=== PATIENT | female | born 1975 | race Caucasian/White ===

== ENCOUNTER 2016-12-26 13:53 | Outpatient (CLI) | payer MEDICAID, OTHER ==
[2016-12-26 14:18] LABS: #Basophils 0.1 thou/uL (0.0-0.2); #Eosinphils 0.1 thou/uL (0.0-0.7); #Monocytes 0.6 thou/uL (0.11-0.59); #Neutrophils 4.3 thou/uL (1.40-6.50); %Basophils 1.5 % (0.0-1.0); %Lymphocytes 28.4 % (21.0-51.0); %Monocytes 8.2 % (0.0-10.0); Hemoglobin 16.7 g/dL (12.0-16.0); Mean Corpuscular HGB CONC 34.1 g/dL (32.0-36.0); Mean Corpuscular Hemoglobin 31.4 pg (27.0-31.0); Mean Corpuscular Volume 92.3 fl (81.0-99.0); Mean Platelet Volume 7.4 fL (7.4-10.4); Platelet Count 246 thou/uL (130-400); RBC Distribution Width 11.9 % (11.5-14.5); Red Blood Cell (RBC) Count 5.31 mill/uL (4.20-5.40); White Blood Cell (WBC) Count 7.2 thou/uL (4.8-10.8)
[2016-12-26 14:20] LABS: ALT (SGPT) 19 U/L (8-55); AST (SGOT) 14 U/L (5-34); Albumin 4.4 g/dL (3.5-5.0); Alkaline Phosphatase 84 U/L (40-150); Anion Gap 15 mmol/L (10-20); BUN (Urea Nitrogen) 14 mg/dL (7.0-18.7); Bilirubin, Total 0.5 mg/dL (0.2-1.2); Calc. Creatinine Clearance 0 mL/min (70-130); Calcium 9.7 mg/dL (7.8-10.44); Carbon Dioxide 25 mmol/L (22-29); Cardiac Risk 4.7 (Less than 4.5); Chloride 105 mmol/L (98-107); Cholesterol 225 mg/dl (< 200 Desired); Estimated GFR-MDRD 83; Globulin 2.6 g/dL (2.4-3.5); Glucose 99 mg/dL (70-105); HDL Cholesterol 48 mg/dL (>60 Neg Risk); LDL Cholesterol, Calculated 162 mg/dL; Potassium 4.1 mmol/L (3.5-5.1); Sodium 141 mmol/L (136-145); Triglycerides 74 mg/dL (Less than 150)
== END 2016-12-26 13:54 | disposition home or self-care (01) ==
LOC: HPCALD 13:53
PROVIDERS: ATTEND Family Medicine
DX: Z13.6 Encounter for screening for cardiovascular disorders (principal); I10 Essential (primary) hypertension; L29.8 Other pruritus; N89.8 Other specified noninflammatory disorders of vagina
CPT/HCPCS: 36415; 80053; 80061; 84443; 85025; 87480; 87491; 87510; 87591; 87660

== ENCOUNTER 2020-02-08 14:35 | Emergency (ER) | payer MEDICAID, SELFPAY ==
[2020-02-08] MEDS ORDERED: Morphine 2 MG/ML SYRINGE ONE (14:52)
[2020-02-08] MEDS ORDERED: Mag-Al Plus 1200 MG/1200 MG/120 MG/30 ML UDCUP ONE (14:52)
[2020-02-08] MEDS ORDERED: Morphine 4 MG/ML VIAL ONE (14:52)
[2020-02-08] MEDS ORDERED: Lidocaine Viscous Sol 2% 15 ml UD Cup ONE (14:52)
[2020-02-08 15:04] LABS: #Basophils 0.2 thou/uL (0.0-0.2); #Eosinphils 0.1 thou/uL (0.0-0.7); #Lymphocytes 2.7 thou/uL (1.20-3.40); #Monocytes 0.8 thou/uL (0.11-0.59); #Neutrophils 7.6 thou/uL (1.40-6.50); %Basophils 1.4 % (0.0-1.0); %Lymphocytes 23.6 % (21.0-51.0); %Monocytes 7.2 % (0.0-10.0); %Neutrophils 66.8 % (42.0-75.0); Hemoglobin 16.6 g/dL (12.0-16.0); Mean Corpuscular HGB CONC 32.4 g/dL (32.0-36.0); Mean Corpuscular Hemoglobin 31.9 pg (27.0-31.0); Mean Corpuscular Volume 98.2 fL (78.0-98.0); Mean Platelet Volume 7.1 fL (7.4-10.4); Platelet Count 309 thou/uL (130-400); RBC Distribution Width 11.5 % (11.5-14.5); Red Blood Cell (RBC) Count 5.23 mill/uL (4.20-5.40); White Blood Cell (WBC) Count 11.3 thou/uL (4.8-10.8)
[2020-02-08 15:17] LABS: BHCG - Serum Negative (NEGATIVE); Pregs Control Background? CLEAR/WHITE (CLR/WHITE); Pregs Control Bar Appear? YES (CONTROL BAR)
[2020-02-08 15:19] LABS: ALT (SGPT) 101 U/L (8-55); AST (SGOT) 165 U/L (5-34); Albumin 4.6 g/dL (3.5-5.0); Alkaline Phosphatase 140 U/L (40-110); Anion Gap 18 mmol/L (10-20); BUN (Urea Nitrogen) 20 mg/dL (7.0-18.7); Bilirubin, Total 0.8 mg/dL (0.2-1.2); Calc. Creatinine Clearance 0 mL/min (70-130); Calcium 10.3 mg/dL (7.8-10.44); Carbon Dioxide 25 mmol/L (22-29); Chloride 100 mmol/L (98-107); Estimated GFR-MDRD 77; Glucose 153 mg/dL (70-105); Lipase 97 U/L (8-78); Potassium 3.1 mmol/L (3.5-5.1); Protein, Total 7.6 g/dL (6.0-8.3); Sodium 140 mmol/L (136-145)
[2020-02-08] MEDS ORDERED: Potassium Chloride 20 MEQ TAB ONE (15:49)
== END 2020-02-08 16:00 | disposition short-term general hospital (02) ==
LOC: BURERS 14:35
DX: K80.20 Calculus of gallbladder without cholecystitis without obstruction (principal); I10 Essential (primary) hypertension; F17.210 Nicotine dependence, cigarettes, uncomplicated; Z79.899 Other long term (current) drug therapy
CPT/HCPCS: 36415; 80053; 83690; 84484; 84703; 85025; 93005; 96374; J2270

== ENCOUNTER 2020-08-07 23:39 | Emergency (ER) | payer BC ==
[2020-08-07] MEDS ORDERED: Lidocaine 2% w/Epinephrine 1:200K 20 ML VIAL ONE (23:42)
[2020-08-08] MEDS ORDERED: Bacitracin 1 PK ONE (00:06)
[2020-08-08] MEDS ORDERED: Doxycycline 100 MG CAP ONE (00:06)
[2020-08-08 00:54] LABS: #Basophils 0.2 thou/uL (0.0-0.2); #Eosinphils 0.2 thou/uL (0.0-0.7); #Lymphocytes 2.6 thou/uL (1.20-3.40); #Monocytes 0.6 thou/uL (0.11-0.59); #Neutrophils 4.8 thou/uL (1.40-6.50); %Lymphocytes 31.6 % (21.0-51.0); %Monocytes 6.8 % (0.0-10.0); %Neutrophils 57.6 % (42.0-75.0); Hemoglobin 16.5 g/dL (12.0-16.0); Mean Corpuscular HGB CONC 34.3 g/dL (32.0-36.0); Mean Corpuscular Hemoglobin 32.7 pg (27.0-31.0); Mean Corpuscular Volume 95.5 fL (78.0-98.0); Platelet Count 246 thou/uL (130-400); Red Blood Cell (RBC) Count 5.05 mill/uL (4.20-5.40); White Blood Cell (WBC) Count 8.3 thou/uL (4.8-10.8)
[2020-08-08 00:55] LABS: INR-International Normal Ratio 0.8; Prothrombin Time 11.4 sec (12.0-14.7)
[2020-08-08 01:01] LABS: Acetaminophen Less than 6.0 mcg/mL (10.0-30.0); Alcohol 152 mg/dL (Less than 10); Salicylate Less than 8.0 mg/dL (15.0-30.0)
--- NOTE | 2020-08-08 10:10 | RAD ---
LEFT WRIST 3 VIEWS: Date: 08/08/2020 No fracture or opaque foreign body seen. The carpals and other bony structures have normal relationsh ips. IMPRESSION: No acute bony findings. POS: HOME
== END 2020-08-08 03:00 | disposition home or self-care (01) ==
LOC: BURERS 23:39
DX: S61.512A Laceration without foreign body of left wrist, initial encounter (principal); F10.129 Alcohol abuse with intoxication, unspecified; I10 Essential (primary) hypertension; F17.210 Nicotine dependence, cigarettes, uncomplicated; X58.XXXA Exposure to other specified factors, initial encounter
CPT/HCPCS: 12002; 36415; 80307; 85025; 85610

== ENCOUNTER 2020-08-23 10:10 | Emergency (ER) | payer BC | END 2020-08-23 10:30 | disposition home or self-care (01) | LOC: BURERS 10:10 | DX: S61.512D Laceration without foreign body of left wrist, subsequent encounter (principal); I10 Essential (primary) hypertension; F17.210 Nicotine dependence, cigarettes, uncomplicated ==

== ENCOUNTER 2022-03-09 03:47 | Emergency (ER) | payer BC ==
[2022-03-09] MEDS ORDERED: cloNIDine 0.1 MG TAB ONE (04:39)
[2022-03-09 05:11] LABS: ALT (SGPT) 31 U/L (8-55); AST (SGOT) 24 U/L (5-34); Alkaline Phosphatase 90 U/L (40-110); Anion Gap 12 mmol/L (10-20); BUN (Urea Nitrogen) 11 mg/dL (7.0-18.7); Bilirubin Negative (Negative); Bilirubin, Total 0.3 mg/dL (0.2-1.2); Blood, Urine Trace (Negative); Calc. Creatinine Clearance 0 mL/min (70-130); Calcium 10.1 mg/dL (7.8-10.44); Carbon Dioxide 25 mmol/L (22-29); Chloride 105 mmol/L (98-107); Clarity Clear (Clear); Estimated GFR 89; Globulin 2.6 g/dL (2.4-3.5); Glucose 97 mg/dL (70-105); Glucose, Urine (Dipstick) Negative (Negative); Ketone, Urine Negative (Negative); Leukocyte Small (Negative); Nitrite Positive (Negative); Potassium 4.1 mmol/L (3.5-5.1); Protein, Total 6.6 g/dL (6.0-8.3); Protein, Urine (Dipstick) Negative (Neg-Trace); Sodium 138 mmol/L (136-145); Urobilinogen 0.2 mg/dL (Less than 2)
[2022-03-09 05:12] LABS: Specific Gravity, Urine Less/Equal 1.005 (1.005-1.030)
[2022-03-09 05:14] LABS: #Basophils 0.1 thou/uL (0.0-0.2); #Eosinphils 0.1 thou/uL (0.0-0.7); #Lymphocytes 1.8 thou/uL (1.20-3.40); #Monocytes 0.6 thou/uL (0.11-0.59); #Neutrophils 5.3 thou/uL (1.40-6.50); %Basophils 1.3 % (0.0-1.0); %Eosinophils 1.8 % (0.0-10.0); %Lymphocytes 22.4 % (21.0-51.0); %Neutrophils 66.5 % (42.0-75.0); Hemoglobin 16.2 g/dL (12.0-16.0); Mean Corpuscular HGB CONC 35.3 g/dL (32.0-36.0); Mean Corpuscular Hemoglobin 32.6 pg (27.0-31.0); Mean Corpuscular Volume 92.3 fL (78.0-98.0); Mean Platelet Volume 6.4 fL (7.4-10.4); Platelet Count 277 thou/uL (130-400); RBC Distribution Width 11.6 % (11.5-14.5); Red Blood Cell (RBC) Count 4.95 mill/uL (4.20-5.40)
[2022-03-09 05:18] LABS: Amphetamine Detected (NotDetected); Barbiturates Screen Not Detected (NotDetected); Benzodiazepine Screen Detected (NotDetected); Cocaine Metabolite Screen Not Detected (NotDetected); Medtox Control Line Valid? VALID (VALID); Methadone Not Detected (NotDetected); Methamphetamine Not Detected (NotDetected); Opiate Screen Not Detected (NotDetected); Oxycodone Screen Not Detected (NotDetected); Phencyclidine (PCP) Not Detected (NotDetected); THC/Cannabinoid Screen Not Detected (NotDetected); Tricyclic Screen Not Detected (NotDetected)
[2022-03-09 05:19] LABS: Bacteria/HPF 3+ HPF (None Seen); RBC/HPF None Seen HPF (0-3); Squamous Epithelial None Seen HPF (0-3)
== END 2022-03-09 05:52 | disposition home or self-care (01) ==
LOC: BURERS 03:47
DX: F41.1 Generalized anxiety disorder (principal); T50.5X2A Poisoning by appetite depressants, intentional self-harm, initial encounter; N39.0 Urinary tract infection, site not specified; E78.00 Pure hypercholesterolemia, unspecified; I10 Essential (primary) hypertension; F17.210 Nicotine dependence, cigarettes, uncomplicated; Z79.899 Other long term (current) drug therapy
CPT/HCPCS: 36415; 80053; 80306; 81003; 81015; 84443; 85025; 87077; 87086; 87186; 99283

== ENCOUNTER 2022-09-06 09:54 | Emergency (ER) | payer BC ==
[2022-09-06] MEDS ORDERED: Morphine 4 MG/ML VIAL ONE (10:25)
[2022-09-06] MEDS ORDERED: Ondansetron PF 4 MG/2 ML Vial ONE (10:25)
[2022-09-06 10:37] LABS: #Basophils 0.1 thou/uL (0.0-0.2); #Eosinphils 0.2 thou/uL (0.0-0.7); #Lymphocytes 1.4 thou/uL (1.20-3.40); #Monocytes 0.8 thou/uL (0.11-0.59); #Neutrophils 8.4 thou/uL (1.40-6.50); %Basophils 1.1 % (0.0-1.0); %Eosinophils 1.6 % (0.0-10.0); %Lymphocytes 13.1 % (21.0-51.0); %Monocytes 7.2 % (0.0-10.0); %Neutrophils 76.9 % (42.0-75.0); Hemoglobin 16.3 g/dL (12.0-16.0); Mean Corpuscular HGB CONC 35.4 g/dL (32.0-36.0); Mean Corpuscular Hemoglobin 32.7 pg (27.0-31.0); Mean Corpuscular Volume 92.3 fl (78.0-98.0); Platelet Count 293 10x3/uL (130-400); RBC Distribution Width 11.2 % (11.5-14.5)
[2022-09-06 10:53] LABS: ALT (SGPT) 719 U/L (8-55); AST (SGOT) 715 U/L (5-34); Albumin 4.3 g/dL (3.5-5.0); Alkaline Phosphatase 138 U/L (40-110); Anion Gap 14 mmol/L (10-20); BUN (Urea Nitrogen) 18 mg/dL (7.0-18.7); Bilirubin, Total 1.6 mg/dL (0.2-1.2); Calc. Creatinine Clearance 0 mL/min (70-130); Calcium 9.8 mg/dL (7.8-10.44); Carbon Dioxide 23 mmol/L (22-29); Chloride 107 mmol/L (98-107); Estimated GFR 99; Globulin 2.8 g/dL (2.4-3.5); Glucose 109 mg/dL (70-105); Lipase 779 U/L (8-78); Potassium 4.2 mmol/L (3.5-5.1); Protein, Total 7.1 g/dL (6.0-8.3); Sodium 140 mmol/L (136-145)
[2022-09-06 11:38] LABS: Bilirubin Moderate (Negative); Blood, Urine Trace (Negative); Clarity Slightly Cloudy (Clear); Glucose, Urine (Dipstick) Negative (Negative); Ketone, Urine Trace mg/dL (Negative); Leukocyte Negative (Negative); Nitrite Negative (Negative); Protein, Urine (Dipstick) Trace mg/dL (Neg-Trace); Specific Gravity, Urine 1.025 (1.005-1.030); Urobilinogen > or = 8.0 mg/dL (Less than 2)
[2022-09-06 11:40] LABS: Pregnancy Test - Urine (BHCG) Negative (Negative); Pregu Control Background? CLEAR/WHITE (CLR/WHITE); Pregu Control Bar Appear? YES (CONTROL BAR); Specific Gravity 1.025 (1.002-1.036)
[2022-09-06 11:50] LABS: Bacteria/HPF 2+ HPF (None Seen); Mucous/LPF 1+ LPF (<2+); RBC/HPF 0-3 HPF (0-3); Squamous Epithelial None Seen HPF (0-3); WBC/HPF None Seen HPF (0-3)
[2022-09-06] MEDS ORDERED: HYDROcodone/Acetaminophen 5/325 mg Tablet ONE ×2 (13:09→13:10)
== END 2022-09-06 13:32 | disposition home or self-care (01) ==
LOC: BURERS 09:54
DX: K85.90 Acute pancreatitis without necrosis or infection, unspecified (principal); R11.0 Nausea; R74.8 Abnormal levels of other serum enzymes; E78.5 Hyperlipidemia, unspecified; E78.00 Pure hypercholesterolemia, unspecified; I10 Essential (primary) hypertension; F17.210 Nicotine dependence, cigarettes, uncomplicated
CPT/HCPCS: 74177; 80053; 81003; 81015; 81025; 83690; 84484; 85025; 93005; 96374; 96375; J2270; J2405

== ENCOUNTER 2022-09-13 03:39 | Emergency (ER) | payer BC ==
[2022-09-13] MEDS ORDERED: Mag-Al Plus 1200 MG/1200 MG/120 MG/30 ML UDCUP ONE ×2 (04:13→07:28)
[2022-09-13] MEDS ORDERED: Morphine 2 MG/ML VIAL ONE (04:13)
[2022-09-13] MEDS ORDERED: Morphine 4 MG/ML VIAL ONE ×2 (04:13→07:28)
[2022-09-13] MEDS ORDERED: Lidocaine Viscous Sol 2% 15 ml UD Cup ONE ×2 (04:13→07:28)
[2022-09-13] MEDS ORDERED: Promethazine HCl 25 MG/ML VIAL ONE ×2 (04:13→07:28)
[2022-09-13 05:03] LABS: #Basophils 0.1 thou/uL (0.0-0.2); #Eosinphils 0.3 thou/uL (0.0-0.7); #Lymphocytes 1.7 thou/uL (1.20-3.40); #Monocytes 0.8 thou/uL (0.11-0.59); #Neutrophils 4.9 thou/uL (1.40-6.50); %Basophils 1.7 % (0.0-1.0); %Eosinophils 3.7 % (0.0-10.0); %Lymphocytes 21.2 % (21.0-51.0); %Monocytes 10.8 % (0.0-10.0); %Neutrophils 62.7 % (42.0-75.0); Hemoglobin 16.6 g/dL (12.0-16.0); Mean Corpuscular HGB CONC 36.2 g/dL (32.0-36.0); Mean Corpuscular Volume 91.2 fl (78.0-98.0); Platelet Count 342 10x3/uL (130-400); RBC Distribution Width 11.2 % (11.5-14.5); Red Blood Cell (RBC) Count 5.04 mill/uL (4.20-5.40); White Blood Cell (WBC) Count 7.8 10x3/uL (4.8-10.8)
[2022-09-13 05:07] LABS: ALT (SGPT) 1241 U/L (8-55); AST (SGOT) 435 U/L (5-34); Albumin 4.4 g/dL (3.5-5.0); Alkaline Phosphatase 395 U/L (40-110); Anion Gap 14 mmol/L (10-20); BUN (Urea Nitrogen) 13 mg/dL (7.0-18.7); Calc. Creatinine Clearance 0 mL/min (70-130); Calcium 10.7 mg/dL (7.8-10.44); Carbon Dioxide 29 mmol/L (22-29); Chloride 100 mmol/L (98-107); Estimated GFR 92; Globulin 3.2 g/dL (2.4-3.5); Glucose 112 mg/dL (70-105); Lipase 56 U/L (8-78); Potassium 3.7 mmol/L (3.5-5.1); Protein, Total 7.6 g/dL (6.0-8.3); Sodium 139 mmol/L (136-145)
[2022-09-13] MEDS ORDERED: Iopamidol 370 76% 100 ML VIAL ONE (11:52)
== END 2022-09-13 09:18 | disposition home or self-care (01) ==
LOC: BURERS 03:39
DX: R10.13 Epigastric pain (principal); R10.11 Right upper quadrant pain; R11.10 Vomiting, unspecified; R74.01 Elevation of levels of liver transaminase levels; E78.00 Pure hypercholesterolemia, unspecified; I10 Essential (primary) hypertension; F17.210 Nicotine dependence, cigarettes, uncomplicated
CPT/HCPCS: 74177; 80053; 83605; 83690; 85025; 93005; 96361; 96374; 96375; 96376; J2270; J2272; J2550; Q9967

== ENCOUNTER 2022-09-16 20:48 | Emergency (ER) | payer BC ==
[2022-09-16] MEDS ORDERED: Ondansetron PF 4 MG/2 ML Vial ONE (21:16)
[2022-09-16] MEDS ORDERED: Morphine 4 MG/ML VIAL ONE ×2 (21:16→22:35)
[2022-09-16 21:18] LABS: #Basophils 0.2 thou/uL (0.0-0.2); #Eosinphils 0.2 thou/uL (0.0-0.7); #Lymphocytes 2.8 thou/uL (1.20-3.40); #Monocytes 1.2 thou/uL (0.11-0.59); %Basophils 1.2 % (0.0-1.0); %Eosinophils 1.5 % (0.0-10.0); %Lymphocytes 20.9 % (21.0-51.0); %Monocytes 8.7 % (0.0-10.0); %Neutrophils 67.7 % (42.0-75.0); Hemoglobin 16.3 g/dL (12.0-16.0); Mean Corpuscular HGB CONC 35.8 g/dL (32.0-36.0); Mean Corpuscular Hemoglobin 33.9 pg (27.0-31.0); Mean Corpuscular Volume 94.5 fl (78.0-98.0); Mean Platelet Volume 6.7 fL (7.4-10.4); Platelet Count 360 10x3/uL (130-400); RBC Distribution Width 11.7 % (11.5-14.5); Red Blood Cell (RBC) Count 4.82 mill/uL (4.20-5.40); White Blood Cell (WBC) Count 13.3 10x3/uL (4.8-10.8)
[2022-09-16 21:31] LABS: ALT (SGPT) 429 U/L (8-55); AST (SGOT) 105 U/L (5-34); Albumin 4.4 g/dL (3.5-5.0); Alkaline Phosphatase 331 U/L (40-110); Anion Gap 16 mmol/L (10-20); BUN (Urea Nitrogen) 9 mg/dL (7.0-18.7); Bilirubin, Total 2.6 mg/dL (0.2-1.2); Calc. Creatinine Clearance 0 mL/min (70-130); Calcium 10.3 mg/dL (7.8-10.44); Carbon Dioxide 25 mmol/L (22-29); Chloride 101 mmol/L (98-107); Estimated GFR 92; Globulin 3.1 g/dL (2.4-3.5); Glucose 119 mg/dL (70-105); Lipase 128 U/L (8-78); Potassium 3.5 mmol/L (3.5-5.1); Protein, Total 7.5 g/dL (6.0-8.3); Sodium 138 mmol/L (136-145)
[2022-09-16] MEDS ORDERED: Mag-Al Plus 1200 MG/1200 MG/120 MG/30 ML UDCUP ONE ×2 (22:36→22:40)
[2022-09-16] MEDS ORDERED: Lidocaine Viscous Sol 2% 15 ml UD Cup ONE (22:41)
== END 2022-09-16 22:56 | disposition home or self-care (01) ==
LOC: BURERS 20:48
DX: R10.13 Epigastric pain (principal); R10.11 Right upper quadrant pain; E78.00 Pure hypercholesterolemia, unspecified; F17.210 Nicotine dependence, cigarettes, uncomplicated
CPT/HCPCS: 71045; 74177; 80053; 83690; 84484; 85025; 93005; 96374; 96375; 96376; J2270; J2405